=== PATIENT | male | born 1985 | race Caucasian/White ===

== ENCOUNTER 2018-02-07 13:54 | Emergency (ER) | payer OTHER ==
[2018-02-07 16:06] LABS: ABS Basophils 0.1 10^3/ul (0-0.2); ABS Eosinophils 0.2 10^3/ul (0-0.6); ABS Lymphocytes 1.7 10^3/ul (1.0-4.8); ABS Monocytes 0.5 10^3/ul (0-0.8); ABS Neutrophils 2.2 10^3/ul (1.5-7.7); ABS Nucleated RBC 0 10^3/ul; Hematocrit 41 % (42-52); Hemoglobin 13.7 g/dl (14.0-18.0); Lymphocyte % 36.4 %; Mean Corpuscular HGB Conc 33 g/dl (31-36); Mean Corpuscular Hemoglobin 32 pg (27-31); Mean Corpuscular Volume 96 fL (80-94); Mean Platelet Volume 8.9 fL (7.4-10.4); Nucleated Red Blood Cells % 0; Platelet Count 247 10^3/ul (150-450); Red Blood Count 4.28 10^6/ul (4.00-5.40); Red Cell Distribution Width 14 % (10.5-15); White Blood Count 4.6 10^3/ul (3.5-10.8)
[2018-02-07 16:23] LABS: Albumin 4.3 g/dL (3.2-5.2); BUN/Creatinine Ratio 15.2 (8-20); Calcium 9.1 mg/dL (8.6-10.3); EGFR Non-African American 94.7 (>60); Globulin 2.1 g/dL (2-4); Potassium 3.8 mmol/L (3.5-5.0); Total Protein 6.4 g/dL (6.4-8.9)
--- NOTE | 2018-02-07 17:41 | ED ---
HPI Chest Pain - HPI Summary HPI Summary: Patient complains of one episode of sharp left-sided chest pain near left axilla last night lasting about 15 minutes with numbness and tingling down left arm. Associated with diaphoresis and turning pale. Denies any chest pain since. Denies EtOH or recreational drug use, states he did have more caffeine than usual, but denies any legal or illegal stimulants. No history of same pain , denies fever, cough, sore throat, SOB, N/V/D, abdominal pain, change in urine , change in BM. Medical history is none. Smoker PPD 16 years. Also admits to increased stress, and abnormal sleep schedule as he operates [employer]. 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 - History of Current Complaint Chief Complaint: EDChestPainROMI Time Seen by Provider: 02/07/18 15:43 Hx Obtained From: Patient Onset/Duration: Started Hours Ago Timing: Lasting Minutes Initial Severity: Mild Current Severity: None Pain Intensity: 0 Pain Scale Used: 0-10 Numeric Chest Pain Location: Left Lateral Chest Pain Radiates To:: Arm Character: Pressure/Squeezing Aggravating Factor(s): Nothing Alleviating Factor(s): Nothing Associated Signs and Symptoms: Positive: Chest Pain, Numbness, Tingling, Diaphoresis - Allergy/Home Medications Allergies/Adverse Reactions: Allergies Allergy/AdvReac Type Severity Reaction Status Date / Time amoxicillin Allergy Unknown Verified 02/07/18 16:05 Reaction Details Penicillins Allergy Unknown Verified 02/07/18 16:05 Reaction Details PMH/Surg Hx/FS Hx/Imm Hx Endocrine/Hematology History: Denies: Hx Diabetes, Hx Thyroid Disease Cardiovascular History: Denies: Hx Atrial Fibrillation, Hx Cardiac Arrest, Hx Hypertension Respiratory History: Reports: Hx Asthma Denies: Hx Chronic Obstructive Pulmonary Disease (COPD) GI History: Denies: Hx Ulcer History: Denies: Hx Dialysis Sensory History: Denies: Hx Eye Prosthesis EENT History: Denies: Hx Deafness Neurological History: Denies: Hx Developmental Delay Psychiatric History: Denies: Hx Autism Infectious Disease History: No Infectious Disease History: Reports: Hx Shingles Denies: Hx Clostridium Difficile, Hx Hepatitis, Hx Human Immunodeficiency Virus (HIV), Hx of Known/Suspected MRSA, Hx Tuberculosis, Hx Known/Suspected VRE , Hx Known/Suspected VRSA, History Other Infectious Disease, Traveled Outside the [place] in Last 30 Days - Family History Known Family History: Positive: None Family History: no reported chronic illnesses - Social History Occupation: Employed Full-time Alcohol Use: None Substance Use Type: Reports: Marijuana Substance Use Comment - Amount & Last Used: .5-1g daily Smoking Status (MU): Former Smoker Type: Cigarettes Length of Time of Smoking/Using Tobacco: 17 years Have You Smoked in the Last Year: Yes Review of Systems Positive: Skin Diaphoresis Eyes: Negative ENT: Negative Positive: Chest Pain Respiratory: Negative Gastrointestinal: Negative Genitourinary: Negative Musculoskeletal: Negative Skin: Negative Neurological: Negative Psychological: Normal All Other Systems Reviewed And Are Negative: Yes Physical Exam - Summary Physical Exam Summary: Chest pain not reproducible. No evidence of ecchymosis, erythema, deformity, swelling to left chest or left arm. Or left shoulder. PMS intact distally on left upper extremity. Lung sounds clear to auscultation bilaterally. Regular rate and rhythm. Triage Information Reviewed: Yes Vital Signs On Initial Exam: Initial Vitals Temp Pulse Resp BP Pulse Ox 98.5 F 59 20 103/58 100 02/07/18 14:32 02/07/18 14:32 02/07/18 14:32 02/07/18 14:32 02/07/18 14:32 Vital Signs Reviewed: Yes Appearance: Positive: Well-Appearing Skin: Positive: Warm Head/Face: Positive: Normal Head/Face Inspection Eyes: Positive: Normal ENT: Positive: Normal ENT inspection Neck: Positive: Supple Respiratory/Lung Sounds: Positive: Clear to Auscultation Cardiovascular: Positive: Normal Abdomen Description: Positive: Nontender Musculoskeletal: Positive: Normal Neurological: Positive: Normal Psychiatric: Positive: Normal AVPU Assessment: Alert - [place] Coma Scale Best Eye Response: 4 - Spontaneous Best Motor Response: 6 - Obeys Commands Best Verbal Response: 5 - Oriented Coma Scale Total: 15 Diagnostics - Vital Signs Vital Signs Temp Pulse Resp BP Pulse Ox 02/07/18 17:00 52 13 98 02/07/18 16:31 51 15 113/55 98 02/07/18 16:03 11 02/07/18 16:01 127/60 02/07/18 14:32 98.5 F 59 20 103/58 100 - Laboratory Lab Results: Lab Results 02/07/18 02/07/1818 Range/Units 15:59 16:00 16:00 WBC 4.6 (3.5-10.8) 10^3/ul RBC 4.28 (4.00-5.40) 10^6/ul Hgb 13.7 L (14.0-18.0) g/dl Hct 41 L (42-52) % MCV 96 H (80-94) fL MCH 32 H (27-31) pg MCHC 33 (31-36) g/dl RDW 14 (10.5-15) % Plt Count 247 (150-450) 10^3/ul MPV 8.9 (7.4-10.4) fL Neut % (Auto) 47.4 % Lymph % (Auto) 36.4 % Jefferson % (Auto) 10.1 % Eos % (Auto) 5.0 % Baso % (Auto) 1.1 % Absolute Neuts (auto) 2.2 (1.5-7.7) 10^3/ul Absolute Lymphs (auto) 1.7 (1.0-4.8) 10^3/ul Absolute Monos (auto) 0.5 (0-0.8) 10^3/ul Absolute Eos (auto) 0.2 (0-0.6) 10^3/ul Absolute Basos (auto) 0.1 (0-0.2) 10^3/ul Absolute Nucleated RBC 0 10^3/ul Nucleated RBC % 0 D-Dimer, Quantitative < 200 (Less Than 230) ng/mL Sodium 139 (135-145) mmol/L Potassium 3.8 (3.5-5.0) mmol/L Chloride 106 (101-111) mmol/L Carbon Dioxide 28 (22-32) mmol/L Anion Gap 5 (2-11) mmol/L BUN 14 (6-24) mg/dL Creatinine 0.92 (0.67-1.17) mg/dL Est GFR ( Amer) 114.6 (>60) Est GFR (Non-Af Amer) 94.7 (>60) BUN/Creatinine Ratio 15.2 (8-20) Glucose 104 H (70-100) mg/dL Lactic Acid (0.5-2.0) mmol/L Calcium 9.1 (8.6-10.3) mg/dL Total Bilirubin 1.00 (0.2-1.0) mg/dL AST 13 (13-39) U/L ALT 9 (7-52) U/L Alkaline Phosphatase 24 L (34-104) U/L Troponin I 0.00 (<0.04) ng/mL Total Protein 6.4 (6.4-8.9) g/dL Albumin 4.3 (3.2-5.2) g/dL Globulin 2.1 (2-4) g/dL Albumin/Globulin Ratio 2.0 (1-3) 02/07/18 Range/Units 16:00 WBC (3.5-10.8) 10^3/ul RBC (4.00-5.40) 10^6/ul Hgb (14.0-18.0) g/dl Hct (42-52) % MCV (80-94) fL MCH (27-31) pg MCHC (31-36) g/dl RDW (10.5-15) % Plt Count (150-450) 10^3/ul MPV (7.4-10.4) fL Neut % (Auto) % Lymph % (Auto) % Jefferson % (Auto) % Eos % (Auto) % Baso % (Auto) % Absolute Neuts (auto) (1.5-7.7) 10^3/ul Absolute Lymphs (auto) (1.0-4.8) 10^3/ul Absolute Monos (auto) (0-0.8) 10^3/ul Absolute Eos (auto) (0-0.6) 10^3/ul Absolute Basos (auto) (0-0.2) 10^3/ul Absolute Nucleated RBC 10^3/ul Nucleated RBC % D-Dimer, Quantitative (Less Than 230) ng/mL Sodium (135-145) mmol/L Potassium (3.5-5.0) mmol/L Chloride (101-111) mmol/L Carbon Dioxide (22-32) mmol/L Anion Gap (2-11) mmol/L BUN (6-24) mg/dL Creatinine (0.67-1.17) mg/dL Est GFR ( Amer) (>60) Est GFR (Non-Af Amer) (>60) BUN/Creatinine Ratio (8-20) Glucose (70-100) mg/dL Lactic Acid 0.7 (0.5-2.0) mmol/L Calcium (8.6-10.3) mg/dL Total Bilirubin (0.2-1.0) mg/dL AST (13-39) U/L ALT (7-52) U/L Alkaline Phosphatase (34-104) U/L Troponin I (<0.04) ng/mL Total Protein (6.4-8.9) g/dL Albumin (3.2-5.2) g/dL Globulin (2-4) g/dL Albumin/Globulin Ratio (1-3) Result Diagrams: 02/07/18 16:00 02/07/18 16:00 Lab Statement: Any lab studies that have been ordered have been reviewed, and results considered in the medical decision making process. Chest Pain Course/Dx - Course Course Of Treatment: Patient complains of one episode of sharp left-sided chest pain near left axilla last night lasting about 15 minutes with numbness and tingling down left arm. Associated with diaphoresis and turning pale. Denies any chest pain since. Denies EtOH or recreational drug use, states he did have more caffeine than usual, but denies any legal or illegal stimulants. No history of same pain, denies fever, cough, sore throat, SOB, N/V/D, abdominal pain, change in urine, change in BM. Medical history is none. Smoker PPD 16 years. Also admits to increased stress, and abnormal sleep schedule as he operates [employer]. 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 Physical exam:Chest pain not reproducible. No evidence of ecchymosis, erythema , deformity, swelling to left chest or left arm. Or left shoulder. PMS intact distally on left upper extremity. Lung sounds clear to auscultation bilaterally. Regular rate and rhythm. Vital signs within normal limits and stable. Labs unremarkable. EKG sinus bradycardia. Chest x-ray negative. D- dimer negative. Troponin negative. - Diagnoses Provider Diagnoses: Atypical chest pain Discharge - Sign-Out/Discharge Documenting (check all that apply): Patient Departure - Discharge Plan Condition: Stable Disposition: HOME Patient Education Materials: Chest Pain (ED) Referrals: No Primary Care Phys,NOPCP [Primary Care Provider] - [facility] [Outside] Additional Instructions: Follow-up with primary care. Return to the ED for any new or worsening symptoms - Billing Disposition and Condition Condition: STABLE Disposition: Home
[2018-02-07 17:45] VITALS: BP 138/71
== END 2018-02-07 17:43 | disposition home or self-care (01) ==
LOC: ED 13:54
DX: R07.89 Other chest pain (principal); Z88.0 Allergy status to penicillin; Z87.891 Personal history of nicotine dependence
CPT/HCPCS: 36415; 71045; 80053; 83605; 84484; 85025; 85379; 93005; 99282

== ENCOUNTER 2019-01-23 07:05 | Emergency (ER) | payer BC ==
[2019-01-23 07:19] VITALS: BP 121/66
--- NOTE | 2019-01-23 07:21 | UC ---
UC General HPI - HPI Summary HPI Summary: Patient presents to urgent care reporting progressive discomfort in the perirectal area. Patient states that 6 weeks ago he first noticed some discomfort when he Bowel movements. He states it was intermittent. Patient states over the last several days and has become more constant. Patient with pain with prolonged standing and walking and sitting. Patient states bowel movements are exquisitely painful and causes him to feel like he might pass out with nausea. Patient has smoked marijuana for pain but has not taken any analgesia. Patient states once he had a little blood when he had a bowel movement but that was several weeks ago. Patient denies abdominal pain. Patient has any urinary symptoms but states urine increases discomfort in his rectum. Patient without a history of anything similar. Patient without a history of GI diagnoses or family history of the same. Patient denies any rectal trauma. Patient's medications as noted in the EMR by the triage were reviewed. - History of Current Complaint Chief Complaint: UCGI Stated Complaint: bowel discomfort Time Seen by Provider: 01/23/19 07:20 Hx Obtained From: Patient Onset Severity: Moderate Current Severity: Moderate Pain Intensity: 6 - Allergy/Home Medications Allergies/Adverse Reactions: Allergies Allergy/AdvReac Type Severity Reaction Status Date / Time amoxicillin Allergy Unknown Verified 01/23/19 07:11 Reaction Details Penicillins Allergy Unknown Verified 01/23/19 07:11 Reaction Details PMH/Surg Hx/FS Hx/Imm Hx Previously Healthy: Yes - Surgical History Surgical History: None - Family History Known Family History: Positive: Non-Contributory Family History: no reported chronic illnesses - Social History Occupation: Employed Full-time - [employer] Lives: With Family Alcohol Use: None Substance Use Type: Marijuana Substance Use Comment - Amount & Last Used: .5-1g daily Smoking Status (MU): Light Every Day Tobacco Smoker Type: Cigarettes Length of Time of Smoking/Using Tobacco: 17 years Have You Smoked in the Last Year: Yes Review of Systems All Other Systems Reviewed And Are Negative: Yes Constitutional: Positive: Chills - With bowel movement Skin: Positive: Negative Eyes: Positive: Negative Respiratory: Positive: Negative Cardiovascular: Positive: Negative Gastrointestinal: Positive: Other - Rectal pain Genitourinary: Positive: Negative, Other - Pain and rectum with urination Physical Exam - Summary Physical Exam Summary: Vital Signs Reviewed: Yes A+Ox3, no distress Eyes: Conjunctiva Clear, VIVIANA. EOM intact and full ENT: Hearing grossly normal TM x 2 clear, mmoist, uvula midline, no exudate, no erythema Neck: Positive: Supple Respiratory: Positive: No respiratory distress, No accessory muscle use + CTA throughout no w/r Cardiovascular: RRR nl s1, s2 no m/r CBT <2 sec abd soft + BS nt/nd no guarding, no distension, no CVA RN Salo at bedside for rectal: no external lesions, no drainage, scant brown stool in vault, significant TTP 9 o''clock with external exam. no blood , no fissures, no hemorrhoid noted Musculoskeletal Exam: ANAYA x 4 without difficulty Strength Intact, ROM Intact Neurological: Positive: Alert, + sensation throughout Psychological: Positive: Normal Response To examiner Skin: Positive: no rash, no ecchymosis Triage Information Reviewed: Yes Vital Signs: Initial Vital Signs Temp 99.0 F 01/23/19 07:12 Pulse 87 01/23/19 07:12 Resp 16 01/23/19 07:12 BP 121/66 01/23/19 07:12 Pulse Ox 98 01/23/19 07:12 Course/Dx - Course Course Of Treatment: Patient presents to urgent care for evaluation of progressive rectal pain over the last several weeks. Patient states initially was mild. Patient has significant pain worse with walking bowel movements and sitting. Patient has not taken anything for pain. No history of similar. Denies any rectal trauma. On exam vital signs are stable. Patient's abdomen is soft with no CVA tenderness. On rectal exam patient with exquisite pain at around 9:00 with external exam. Brown stool. No obvious fissures or hemorrhoids. Recommend patient to the emergency department for further evaluation which will likely include CT scan. Patient comfortable in agreement with plan. Spoke to Dr. Knowles, physician in the emergency department, as well as patient's coming clinical concerns. Patient will go directly there by private vehicle. Patient did decline offers for Motrin and Tylenol at urgent care prior to discharge. - Diagnoses Provider Diagnosis: Anal or rectal pain Discharge ED - Sign-Out/Discharge Documenting (check all that apply): Patient Departure All imaging exams completed and their final reports reviewed: No Studies - Discharge Plan Condition: Stable Disposition: HOME-RECOMMEND TO ED Patient Education Materials: Rectal Pain (ED) Referrals: Harry Fish MD [Medical Doctor] - No Primary Care Phys,NOPCP [Primary Care Provider] - Additional Instructions: The doctor that evaluated you today thinks that you need additional testing that can be completed the emergency department. It is recommended that you go directly to emergency department for further evaluation. This evaluation may include blood work or imaging. This testing will be directed and decided by the provider that evaluate you at the emergency department. If pain becomes worse, you feel lightheaded, you have uncontrolled vomiting, or you have any other concerns while you are being driven to emergency department as recommended to pullover and contact 911. - Billing Disposition and Condition Condition: STABLE Disposition: Home-Recommend to ED
== END 2019-01-23 07:56 | disposition home health service (06) ==
LOC: UCEAST 07:05
DX: K62.89 Other specified diseases of anus and rectum (principal); F17.210 Nicotine dependence, cigarettes, uncomplicated; Z88.0 Allergy status to penicillin
CPT/HCPCS: 99212; G0463

== ENCOUNTER 2019-01-23 08:16 | Emergency (ER) | payer BC ==
--- NOTE | 2019-01-23 09:00 | ED ---
GI/ HPI - HPI Summary HPI Summary: 33-year-old male with no significant past medical history presents to the emergency department today complaining of rectal pain for 2 days. He states his pain is an 8 out of 10 throbbing pain in his rectum which is made worse with standing, bowel movements, Valsalva. He denies recent fevers, blood per rectum, personal or family history of hemorrhoids, bowel diseases. Social history is noncontributory. he has not taken any medication prior to arrival for alleviation of his symptoms. He was sent over from the urgent care for further evaluation and management of his symptoms. Patient denies fever, chest pain, abdominal pain, pain with urination, rashes, headache, recent illness. - History of Current Complaint Chief Complaint: EDRectalPain Time Seen by Provider: 01/23/19 08:39 Stated Complaint: RECTAL PAIN PER PT Hx Obtained From: Patient Onset/Duration: Started Days Ago Timing: Constant Severity: Severe Current Severity: Severe Pain Intensity: 6 Location of Pain: Rectal, Anal Pain Characteristics: Sharp Associated Signs and Symptoms: Positive: Rectal Pain. Negative: Back Pain, Nausea, Vomiting, External Hemorrhoid, Constipation, External Hemorrhoids, Blood -Streaked Stool, Black Tarry Stool, Bright Red Blood w/Stool, Blood w/Stool, Diarrhea, Fever - Allergy/Home Medications Allergies/Adverse Reactions: Allergies Allergy/AdvReac Type Severity Reaction Status Date / Time amoxicillin Allergy Unknown Verified 01/23/19 08:24 Reaction Details Penicillins Allergy Unknown Verified 01/23/19 08:24 Reaction Details Home Medications: Home Medications Calcium Polycarbophil [Fiber Lax] 625 mg PO DAILY 01/23/19 [History Confirmed ] PMH/Surg Hx/FS Hx/Imm Hx Endocrine/Hematology History: Denies: Hx Diabetes, Hx Thyroid Disease Cardiovascular History: Denies: Hx Atrial Fibrillation, Hx Cardiac Arrest, Hx Hypertension Respiratory History: Reports: Hx Asthma Denies: Hx Chronic Obstructive Pulmonary Disease (COPD) GI History: Denies: Hx Ulcer History: Denies: Hx Dialysis Musculoskeletal History: Denies: Hx Rheumatoid Arthritis, Hx Osteoporosis, Hx Scoliosis Sensory History: Denies: Hx Eye Prosthesis, Hx Deafness Opthamlomology History: Denies: Hx Eye Prosthesis Neurological History: Denies: Hx Developmental Delay, Hx Headaches, Other Neuro Impairments/ Disorders Psychiatric History: Denies: Hx Autism Infectious Disease History: No Infectious Disease History: Reports: Hx Shingles Denies: Hx Clostridium Difficile, Hx Hepatitis, Hx Human Immunodeficiency Virus (HIV), Hx of Known/Suspected MRSA, Hx Tuberculosis, Hx Known/Suspected VRE , Hx Known/Suspected VRSA, History Other Infectious Disease, Traveled Outside the [place] in Last 30 Days - Family History Known Family History: Positive: None, Non-Contributory Family History: no reported chronic illnesses - Social History Alcohol Use: None Substance Use Type: Reports: Marijuana Substance Use Comment - Amount & Last Used: .5-1g daily Smoking Status (MU): Light Every Day Tobacco Smoker Type: Cigarettes Length of Time of Smoking/Using Tobacco: 17 years Have You Smoked in the Last Year: Yes Review of Systems Constitutional: Negative Eyes: Negative ENT: Negative Cardiovascular: Negative Respiratory: Negative Gastrointestinal: Negative Genitourinary: Negative Musculoskeletal: Negative Skin: Negative Neurological: Negative Psychological: Normal All Other Systems Reviewed And Are Negative: Yes Physical Exam - Summary Physical Exam Summary: Rectal exam chaperoned by BRIDGER Bishop. Inspection of the anus reveals no evidence of external hemorrhoids or lesions. There is good rectal tone. No palpable anal fissure or evidence of internal hemorrhoids. No hard stool ball noticed in rectal vault. Soft stools noted but no sign of blood appreciated. Patient complained of exquisite pain with examination. Triage Information Reviewed: Yes Vital Signs On Initial Exam: Initial Vitals Temp Pulse Resp BP Pulse Ox 98.2 F 74 16 139/87 100 01/23/19 08:21 01/23/19 08:21 01/23/19 08:21 01/23/19 08:21 01/23/19 08:21 Vital Signs Reviewed: Yes Appearance: Positive: Well-Appearing, No Pain Distress, Well-Nourished Skin: Positive: Warm, Skin Color Reflects Adequate Perfusion Eyes: Positive: EOMI, VIVIANA ENT: Positive: Hearing grossly normal Respiratory/Lung Sounds: Positive: Clear to Auscultation, Breath Sounds Present Cardiovascular: Positive: RRR, S1, S2 Abdomen Description: Positive: Nontender, Soft. Negative: Distended, Guarding Bowel Sounds: Positive: Present Musculoskeletal: Positive: Strength/ROM Intact Neurological: Positive: Sensory/Motor Intact, Alert, Oriented to Person Place, Time, Normal Gait, Speech Normal Psychiatric: Positive: Normal AVPU Assessment: Alert Procedures - Sedation Patient Received Moderate/Deep Sedation with Procedure: No Diagnostics - Vital Signs Vital Signs Temp Pulse Resp BP Pulse Ox 01/23/19 08:21 98.2 F 74 16 139/87 100 - Laboratory Result Diagrams: 01/23/19 09:16 01/23/19 09:16 Lab Statement: Any lab studies that have been ordered have been reviewed, and results considered in the medical decision making process. GIGU Course/Dx - Course Course Of Treatment: Patient was evaluated in the emergency Department for rectal pain. Patient seen and examined his vitals are stable and he is afebrile. Laboratory studies were ordered to investigate possible infection and inflammation as well as a CT scan of his abdomen pelvis with contrast to rule out rectal abscess. Rectal exam was chaperoned by BRIDGER Bishop and revealed no evidence of external hemorrhoids or anal fissures or lesions. Fecal occult negative. Labs show no evidence of infection or inflammation. CT scan was negative for acute pathology including rectal abscess. Patient is to follow-up with Gen. surgery as an outpatient for further evaluation and management of symptoms. Patient agrees to this plan. - Diagnoses Differential Diagnoses - Male: Constipation, Hemorrhoids, Rectal Fissure Provider Diagnoses: Rectal pain Discharge ED - Sign-Out/Discharge Documenting (check all that apply): Patient Departure - Discharge Plan Condition: Stable Disposition: HOME Patient Education Materials: Rectal Pain (ED) Referrals: Dalton Geurrero MD [Medical Doctor] - 2 Days Harry Fish MD [Primary Care Provider] - 2 Days Additional Instructions: You were seen in the emergency department today for rectal pain. Labs were done as well as a CT scan. Laboratory studies returned showing no evidence of inflammation or infection. CT scan showed no evidence of acute pathology. It is possible your symptoms are due to an anal fissure which can be extremely painful. Please follow-up with general surgery, Dr. Guerrero, in his clinic for further evaluation and management of possible anal fissure. You may take ibuprofen as needed for pain 600 mg every 6 hours. Please return to the emergency department immediately if you develop any new or worsening symptoms. - Billing Disposition and Condition Condition: STABLE Disposition: Home
[2019-01-23 09:39] LABS: ABS Eosinophils 0.2 10^3/ul (0-0.6); ABS Monocytes 0.3 10^3/ul (0-0.8); ABS Neutrophils 1.9 10^3/ul (1.5-7.7); Eosinophil % 4.7 %; Hematocrit 42 % (42-52); Hemoglobin 14.6 g/dL (14.0-18.0); Mean Corpuscular HGB Conc 35 g/dL (31-36); Mean Corpuscular Hemoglobin 33 pg (27-31); Mean Corpuscular Volume 94 fL (80-94); Mean Platelet Volume 8.6 fL (7.4-10.4); Nucleated Red Blood Cells % 0.3; Platelet Count 258 10^3/uL (150-450); Red Blood Count 4.45 10^6 /uL (4.18-5.48); Red Cell Distribution Width 13 % (10-15); White Blood Count 3.4 10^3/uL (3.5-10.8)
[2019-01-23 09:57] LABS: ALT 12 U/L (7-52); AST 16 U/L (13-39); Albumin 4.7 g/dL (3.2-5.2); Albumin/Globulin Ratio 2.1 (1-3); Alkaline Phosphatase 30 U/L (34-104); Anion Gap 2 mmol/L (2-11); BUN/Creatinine Ratio 15.7 (8-20); Blood Urea Nitrogen 14 mg/dL (6-24); C Reactive Protein < 1.00 mg/L (<8.01); CO2 Carbon Dioxide 29 mmol/L (22-32); Calcium 9.4 mg/dL (8.6-10.3); Chloride 107 mmol/L (101-111); EGFR African American 118.4 (>60); EGFR Non-African American 97.8 (>60); Globulin 2.2 g/dL (2-4); Glucose 98 mg/dL (70-100); Potassium 4.2 mmol/L (3.5-5.0); Sodium 138 mmol/L (135-145); Total Protein 6.9 g/dL (6.4-8.9)
[2019-01-23] MEDS ORDERED: Iohexol 300* (CONTRAST) 10 ML SDV IV ONE (10:30)
[2019-01-23 13:25] VITALS: BP 113/64
== END 2019-01-23 13:25 | disposition home or self-care (01) ==
LOC: ED 08:16
DX: K62.89 Other specified diseases of anus and rectum (principal); J45.909 Unspecified asthma, uncomplicated; F17.210 Nicotine dependence, cigarettes, uncomplicated; Z79.899 Other long term (current) drug therapy; Z88.0 Allergy status to penicillin
CPT/HCPCS: 36415; 74177; 80053; 82270; 85025; 86140; 99283; Q9967